=== PATIENT | male | born 1990 | race Caucasian/White ===

== ENCOUNTER 2018-02-25 14:05 | Emergency (ER) | payer BC, OTHER ==
[~2018-02-25] VITALS: Ht 172.7 cm; Wt 100.0 kg
[~2018-02-25 14:05] MED LIST: IBUP-1051 PO
[2018-02-25 14:18] VITALS: BP 144/71
[2018-02-25] MEDS ORDERED: orphenadrine citrate 60mg/2ml inj. IM ONE (15:05)
[2018-02-25] MEDS ORDERED: LIDOcaine 5% patch TP ONE (15:05)
[2018-02-25] MEDS ORDERED: acetaminophen 325mg tablet PO ONE (15:05)
[2018-02-25] MEDS ORDERED: ketorolac trometh inj. 60 MG/2 ML VIAL IM ONE (15:05)
[2018-02-25] MEDS ORDERED: HYDROcodone/acetaminophen 5mg/325mg tablet PO ONE (15:05)
[2018-02-25] MEDS ORDERED: HYDR-3965 PO (15:36)
[2018-02-25] MEDS ORDERED: CYCL-1 PO (15:36)
[2018-02-25] MEDS ORDERED: LIDO700A32 TOP (15:36)
== END 2018-02-25 16:00 | disposition home or self-care (01) ==
LOC: ER 14:06
DX: G89.29 Other chronic pain (principal); M54.5 Low back pain
CPT/HCPCS: 72100; 96372; 99284; J1885; J2360

== ENCOUNTER 2019-01-06 12:23 | Emergency (ER) | payer MEDICAID, OTHER ==
[~2019-01-06] VITALS: Ht 172.7 cm; Wt 97.7 kg
[~2019-01-06 12:23] MED LIST changes: +CYCL-1 PO; +LIDO700A32 TOP
[2019-01-06] MEDS ORDERED: ketorolac trometh inj. 60 MG/2 ML VIAL IM ONE (13:35)
[2019-01-06] MEDS ORDERED: HYDROcodone/acetaminophen 5mg/325mg tablet PO ONE (13:35)
[2019-01-06] MEDS ORDERED: ACET-3067 PO (13:49)
[2019-01-06 14:22] VITALS: BP 152/96
== END 2019-01-06 14:23 | disposition home or self-care (01) ==
LOC: ER 12:24
DX: M54.2 Cervicalgia (principal); R05 Cough; G89.29 Other chronic pain; Z98.890 Other specified postprocedural states; Z88.5 Allergy status to narcotic agent; Z79.899 Other long term (current) drug therapy
CPT/HCPCS: 72125; 96372; 99284; J1885

== ENCOUNTER 2019-05-11 15:09 | Emergency (ER) | payer MEDICAID ==
[~2019-05-11] VITALS: Ht 172.7 cm; Wt 110.0 kg
[2019-05-11 15:19] VITALS: BP 178/98
[2019-05-11] MEDS ORDERED: ketorolac tromethamine 15mg/ml inj. IM ONE (15:55)
[2019-05-11] MEDS ORDERED: orphenadrine citrate 60mg/2ml inj. IM ONE (15:55)
[2019-05-11] MEDS ORDERED: metroNIDAZOLE 500mg tablet PO ONE (15:55)
[2019-05-11] MEDS ORDERED: azithromycin 250mg tablet PO ONE (15:55)
[2019-05-11] MEDS ORDERED: CefTRIAXone 250MG IM Kit w/LIDOcaine IM ONE (15:55)
[2019-05-11] MEDS ORDERED: IBUP-1985 PO (16:10)
[2019-05-11] MEDS ORDERED: METH-360 PO (16:10)
== END 2019-05-11 17:10 | disposition home or self-care (01) ==
LOC: ER 15:09
DX: M54.2 Cervicalgia (principal); A64 Unspecified sexually transmitted disease; G89.29 Other chronic pain; Z98.890 Other specified postprocedural states; Z88.5 Allergy status to narcotic agent; Z79.899 Other long term (current) drug therapy
CPT/HCPCS: 36415; 87491; 87591; 96372; 99283; J0696; J1885; J2360; J3490

== ENCOUNTER 2020-03-08 14:57 | Emergency (ER) | payer MEDICAID ==
[~2020-03-08] VITALS: Ht 172.7 cm; Wt 106.0 kg
[~2020-03-08 14:57] MED LIST changes: +IBUP-1985 PO; +METH-360 PO
[2020-03-08 15:20] VITALS: BP 156/105
== END 2020-03-08 15:54 | disposition home or self-care (01) ==
LOC: ER 14:57
DX: J02.9 Acute pharyngitis, unspecified (principal); R07.89 Other chest pain; R05 Cough; G89.29 Other chronic pain; Z98.890 Other specified postprocedural states; Z88.8 Allergy status to other drugs, medicaments and biological substances; Z79.899 Other long term (current) drug therapy
CPT/HCPCS: 99281

== ENCOUNTER 2021-01-09 17:16 | Emergency (ER) | payer MEDICAID ==
[~2021-01-09] VITALS: Ht 172.7 cm; Wt 109.1 kg
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
[2021-01-09 21:30] VITALS: BP 141/101
== END 2021-01-09 21:50 | disposition home or self-care (01) ==
LOC: ER 17:17
DX: M54.2 Cervicalgia (principal); R07.0 Pain in throat; G89.29 Other chronic pain; Z98.890 Other specified postprocedural states; Z88.8 Allergy status to other drugs, medicaments and biological substances; Z79.899 Other long term (current) drug therapy
CPT/HCPCS: 72040; 99283

== ENCOUNTER 2021-11-02 20:22 | Emergency (ER) | payer MEDICAID ==
[~2021-11-02] VITALS: Ht 172.7 cm; Wt 104.5 kg
[2021-11-02 20:29] VITALS: BP 157/98
[2021-11-02 21:24] LABS: BASOPHILS % (AUTO) 0.3 % (0-1); EOSINOPHILS # (AUTO) 0.2 X10'3 (0-0.9); EOSINOPHILS % (AUTO) 2.7 % (0-6); HEMATOCRIT 49.1 % (42.0-52.0); HEMOGLOBIN 16.9 g/dl (14.0-17.9); LYMPHOCYTES # (AUTO) 1.5 X10'3 (1.1-4.8); LYMPHOCYTES % (AUTO) 21.1 % (21-51); MEAN CORPUSCULAR HEMOGLOBIN 29.8 PG (27.0-31.0); MEAN CORPUSCULAR HGB CONC 34.4 g/dL (33.0-36.5); MEAN CORPUSCULAR VOLUME 86.7 FL (78-98); MONOCYTES # (AUTO) 0.8 X10'3 (0-0.9); MONOCYTES % (AUTO) 11.7 % (2-12); NEUTROPHILS # (AUTO) 4.7 X10'3 (1.8-7.7); NEUTROPHILS % (AUTO) 64.2 % (42-75); PLATELET COUNT 186 X10'3 (140-440); RED BLOOD COUNT 5.66 X10'6 (4.70-6.10); RED CELL DISTRIBUTION WIDTH 13.1 % (11.5-14.5); WHITE BLOOD COUNT 7.3 X10'3 (4.5-11.0)
[2021-11-02 21:37] LABS: ALANINE AMINOTRANSFERASE 32 U/L (12-78); ALBUMIN 3.7 G/DL (3.4-5.0); ALKALINE PHOSPHATASE 66 IU/L (46-116); ANION GAP 6 (8-16); ASPARTATE AMINO TRANSFERASE 25 U/L (10-37); BILIRUBIN,TOTAL 0.3 MG/DL (0.1-1.0); BLOOD UREA NITROGEN 14 MG/DL (7-18); BUN/CREATININE RATIO 14.4 (5.4-32.0); CALCIUM 8.4 MG/DL (8.5-10.1); CHLORIDE 104 MMOL/L (99-107); CREATININE 0.97 MG/DL (0.60-1.10); GLUCOSE 82 MG/DL (70-104); LIPASE 61 U/L (73-393); POTASSIUM 4.2 MMOL/L (3.5-5.1); SODIUM 140 MMOL/L (135-145); TOTAL CARBON DIOXIDE 29.6 MMOL/L (24-32); TOTAL PROTEIN 7.3 G/DL (6.4-8.2); eGFR 90 ML/MIN
[2021-11-03] MEDS ORDERED: ondansetron 4mg rapidly disintigrating tab PO ONE (02:30)
[2021-11-03] MEDS ORDERED: acetaminophen 325mg tablet PO ONE (02:30)
[2021-11-03] MEDS ORDERED: loperamide 2mg capsule PO ONE (02:30)
[2021-11-03] MEDS ORDERED: LOPE2CAP PO (03:32)
[2021-11-03] MEDS ORDERED: ONDA4TAB12 PO (03:32)
== END 2021-11-03 03:33 | disposition home or self-care (01) ==
LOC: ER 20:23
DX: K52.9 Noninfective gastroenteritis and colitis, unspecified (principal); G89.29 Other chronic pain; M54.50 Low back pain, unspecified; Z88.5 Allergy status to narcotic agent
CPT/HCPCS: 36415; 80053; 83690; 85025; 99284